=== PATIENT | male | born 1965 | race Two or more races ===

== ENCOUNTER 2020-04-12 13:12 | Emergency (ER) | payer MEDICAID ==
[~2020-04-12] VITALS: Ht 167.6 cm; Wt 86.2 kg
[2020-04-12 13:34] VITALS: BP 129/80
[2020-04-12] MEDS ORDERED: HYDROCODONE/APAP 5/325MG TABLET ONE (14:19)
[2020-04-12] MEDS ORDERED: HYDROCODONE/APAP 5/325MG TABLET PO ONE (14:30)
[2020-04-12] MEDS ORDERED: LIDOCAINE 1% INJ 50 ML MDV IJ ONE (15:17)
[2020-04-12] MEDS ORDERED: LIDOCAINE 2% 20 ML MDV TP ONE (15:30)
== END 2020-04-12 16:31 | disposition home or self-care (01) ==
LOC: ER 13:18
DX: S61.412A Laceration without foreign body of left hand, initial encounter (principal); W26.0XXA Contact with knife, initial encounter; Y93.89 Activity, other specified; Y92.89 Other specified places as the place of occurrence of the external cause; Y99.8 Other external cause status
CPT/HCPCS: 12004; 73120; 99283; J3490